=== PATIENT | male | born 1975 | race Caucasian/White ===

== ENCOUNTER 2019-12-03 10:06 | Emergency (ER) | payer SELFPAY ==
[2019-12-03 10:12] VITALS: BP 140/68
[2019-12-03] MEDS ORDERED: INDOMETHACIN 25 MG CAPSULE PO ONE (10:29)
--- NOTE | 2019-12-03 10:31 | ER Document Report ---
HPI - HPI Time Seen by Provider: 12/03/19 10:22 Pain Level: 4 Notes: 44-year-old male patient presented to the emergency department chief complaint of gout flareup. Patient has pain to his right great toe. He states pain has been present for the last 2 days. He has a history of gout, he states that indomethacin has worked for him in the past. Denies any trauma to the area. Denies any fevers. - CONSTITUTIONAL Constitutional: DENIES: Fever, Chills - REPRODUCTIVE Reproductive: DENIES: : - MUSCULOSKELETAL Musculoskeletal: REPORTS: Extremity pain - rt great toe - DERM Skin Color: Normal, [place] Past Medical History - General Information source: Patient - Social History Smoking Status: Former Smoker Chew tobacco use (# tins/day): Yes - 1tin/day Frequency of alcohol use: None Drug Abuse: None Family History: Reviewed & Not Pertinent Patient has homicidal ideation: No Musculoskeletal Medical History: Reports Hx Gout Surgical Hx: Negative - Immunizations Immunizations up to date: Yes Vertical Provider Document - CONSTITUTIONAL Notes: PHYSICAL EXAMINATION: GENERAL: Well-appearing, well-nourished and in no acute distress. HEAD: Atraumatic, normocephalic. EYES: Pupils equal round extraocular movements intact, conjunctiva are normal. ENT: Nares patent NECK: Normal range of motion LUNGS: No respiratory distress Musculoskeletal: Erythema noted to right great toe, tender to palpation from right great toe up into foot. NEUROLOGICAL: Normal speech, normal gait. PSYCH: Normal mood, normal affect. SKIN: Warm, Dry, normal turgor, no rashes or lesions noted. Course - Re-evaluation Re-evalutation: Patient's exam and history consistent with acute gout flareup. Patient will be started on indomethacin as that is what has helped him in the past. Discussed gout diet. - Vital Signs Vital signs: Temp Pulse Resp BP Pulse Ox 107.1 F H 66 18 140/68 H 97 12/03/19 10:23 12/03/19 10:11 12/03/19 10:11 12/03/19 10:11 12/03/19 10:11 Discharge - Discharge Clinical Impression: Gout Qualifiers: Gout site: foot Gout etiology: unspecified cause Chronicity: acute Laterality: right Qualified Code(s): M10.9 - Gout, unspecified Condition: Stable Disposition: HOME, SELF-CARE Additional Instructions: Gout You have been diagnosed as having gout. Gout is a problem caused by an excess of uric acid, a natural chemical found in the body. The cause of this disease is unknown. Gout arthritis occurs when crystals of uric acid form in the joints. The big toe is the most common joint involved, but any joint can become affected. Persons with gout may also form uric acid kidney stones, resulting in flank pain and blood in the urine. Nodules of uric acid may form under the skin. The first step of treatment is to decrease the inflammation in the joint with antiinflammatory medication. Medication to lower the uric acid level in the blood may then be prescribed. This medication should be taken regularly, as any sudden change in dosage may provoke an attack of gout. Some foods, such as red meat, can provoke an attack in some gout sufferers. Call the doctor if new symptoms arise, or if you do not improve. Gout Diet Changing your diet can decrease the uric acid in your blood. High levels of uric acid cause gouty arthritis and uric acid kidney stones. If you have gout, you should avoid meats that are high in purine. Meat products to avoid include liver, kidneys, and brains. In general, poultry is better than red meats. Seafoods to avoid include anchovies, sardines, moreno, mackerel, and scallops. In addition to limiting purine-rich foods, people with gout should limit protein intake to 10-15% of total calories. Carbohydrate intake should be around 50% of total daily calories. Limit fat intake to 30% of total daily calories. Cholesterol intake should be less than 300 mg/day. Maintain or achieve a healthy body weight. Weight loss should be gradual. Rapid weight loss can actually increase uric acid levels temporarily. Alcohol, especially beer, should be avoided. Get plenty of fluids. This dilutes urinary uric acid, and helps prevent uri c acid kidney stones. Drink eight to twelve cups of water daily. Prescriptions: Indomethacin [Indocin 50 mg Capsule] 50 mg PO TID #20 capsule Forms: Return to Work
== END 2019-12-03 10:40 | disposition home or self-care (01) ==
LOC: ER 10:06
DX: M10.9 Gout, unspecified (principal)
CPT/HCPCS: 99283; J3490